=== PATIENT | female | born 1990 | race African-American/Black ===

== ENCOUNTER 2017-12-26 14:12 | Emergency (ER) | payer SELFPAY ==
[2017-12-26] MEDS ORDERED: ONDANSETRON 4 MG/2 ML VIAL ONE (14:44)
[2017-12-26] MEDS ORDERED: NA CHLORIDE 0.9% 1,000 ML ONE (14:44)
[2017-12-26] MEDS ORDERED: KETOROLAC 30 MG/ML INJ ONE (14:44)
[2017-12-26 15:19] LABS: ALT/SGPT 14 U/L (12-78); AST/SGOT 19 U/L (15-37); Albumin 3.9 g/dL (3.4-5.0); Alkaline Phosphatase 60 U/L (45-117); Amylase Level 33 U/L (25-115); BUN Blood Urea Nitrogen 8 mg/dL (7-18); Bicarbonate 25 mmol/L (21-32); Bilirubin Direct 0.2 mg/dL (0-0.2); Bilirubin Total 0.5 mg/dL (0.2-1.0); Glucose Level 82 mg/dL (74-106); Lipase 124 U/L (73-393); Potassium 3.3 mmol/L (3.5-5.1); Protein, Total 7.8 g/dL (6.4-8.2); Sodium Level 140 mmol/L (136-145)
[2017-12-26 15:28] LABS: Absolute Lymphocytes (CBC) 2.4 K/uL (0.7-4.9); Absolute Monocytes 0.6 K/uL (0.1-1.3); Absolute Neutrophil 3.5 K/uL (1.8-8.0); Basophils % 0.7 % (0-1.3); Eosinophils % 0.9 % (0-4.4); Hematocrit 32.8 % (36.0-45.0); Lymphocytes % 36.5 % (15.3-44.8); MCH 30.5 pg (27.0-35.0); MCV 91.7 fL (80-100); MPV 8.4 fL (7.6-11.3); RBC Red Blood Cell Count 3.58 M/uL (3.86-4.86)
[2017-12-26 16:17] LABS: Urine Blood NEGATIVE (NEG); Urine Glucose NEGATIVE (NEG); Urine Protein 1+ (NEG); Urine Specific Gravity >1.030 (1.005-1.030)
--- NOTE | 2017-12-26 18:00 | RAD REPORT ---
EXAM DESCRIPTION: CT - Abdomen Pelvis W Contrast - 12/26/2017 5:43 pm CLINICAL HISTORY: Right lower quadrant pain COMPARISON: None. TECHNIQUE: Biphasic, helical CT imaging of the abdomen and pelvis was performed following 100 ml non -ionic IV contrast. Oral contrast was given. All CT scans are performed using dose optimization technique as appropriate and may include automated exposure control or mA/KV adjustment according to patient size. FINDINGS: No suspicious findings in the lung bases. The liver, spleen, and pancreas show no suspicious findings. Periportal edema is seen. This is nonspe cific but can be seen with systemic illness as well as acute hepatic parenchymal disease. No gallblad frantz or biliary tree abnormality. Symmetric renal function is seen with no hydronephrosis or suspicious renal mass. No pyelonephritis o r acute renal parenchymal process. Partially filled urinary bladder shows no gross abnormality. Parr are accentuated by the contracted state. Retroflexed uterus is present. The patient has an IUD in pl liborio but is positioned very low in the uterus. No left ovarian finding. A 2.8 centimeter right ovarian cyst is evident. There is a small amount of free fluid in the mid right adnexa and right-side cul-de -sac. A ruptured or leaking cyst would be possible. No acute gastric finding. No dilated large or small bowel. The full extent of the appendix is not vis ualized. There is a portion of the appendix that is seen and contains oral contrast. He would be unus ual for appendicitis to exist in the setting of oral contrast within the lumen. No free air or pneumatosis. No focal inflammatory stranding. No hernia, mass or bulky lymphadenopa thy. The urinary bladder is without significant finding. No adrenal abnormality. No suspicious bony findings. IMPRESSION: A definitive abnormality to explain right lower quadrant pain is not seen. Patient has a 2.8 centimeter right ovarian cyst. Cyst rupture or leakage would be possible. PID is no t suspected. IUD is in place positioned low in the uterus. This may need further assessment in terms of IUD functi onality. Appendix is only partially visualized. The visualized portion does have contrast within the lumen. Th e would be unusual to have appendicitis in the setting of intraluminal contrast.
--- NOTE | 2017-12-26 18:02 | ER ---
Nurse's Notes [facility] Name: Tariq Zamora Age: 27 yrs Sex: Female : 1990 Arrival Date: 12/26/2017 Time: 14:14 Bed 17 Private MD: None, None Diagnosis: Unspecified ovarian cysts Presentation: 12/26 14:18 Presenting complaint: Patient states: RLQ pain x 3 days, severe cramping like labor jl7 contractions. Reports nausea, denies V/D, last BM was this morning and normal. Transition of care: patient was not received from another setting of care. Onset of symptoms was December 23, 2017. Risk Assessment: Do you want to hurt yourself or someone else? Patient reports no desire to harm self or others. Initial Sepsis Screen: Does the patient meet any 2 criteria? No. Patient's initial sepsis screen is negative. Does the patient have a suspected source of infection? No. Patient's initial sepsis screen is negative. Care prior to arrival: None. 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 - Social history:: Smoking status: Patient/guardian denies using tobacco. - Ebola Screening: : No symptoms or risks identified at this time. Screenin:04 Abuse screen: Denies threats or abuse. Denies injuries from another. Nutritional ch screening: No deficits noted. Tuberculosis screening: No symptoms or risk factors identified. Fall Risk None identified. Assessment: 15:04 General: Appears in no apparent distress. uncomfortable, Behavior is calm, cooperative, ch appropriate for age. Pain: Complains of pain in abdomen and right lower quadrant Pain currently is 8 out of 10 on a pain scale. Pain began gradually, 2-3 days ago. Neuro: No deficits noted. Respiratory: No deficits noted. GI: Bowel sounds present X 4 quads. Abd is soft X 4 quads Abdomen is tender to palpation in right lower quadrant Reports nausea. : No signs and/or symptoms were reported regarding the genitourinary system. Derm: Skin is pink, warm \T\ dry. 16:00 Reassessment: Patient appears in no apparent distress at this time. Patient and/or ch family updated on plan of care and expected duration. Pain level reassessed. Patient is alert, oriented x 3, equal unlabored respirations, skin warm/dry/pink. Patient states feeling better. Patient states symptoms have improved. 16:10 Reassessment: Patient appears in no apparent distress at this time. pt still trying to ch drink her contrast. pt gags on contrast, states she is going to vomit. pt medicated with zofran. 17:11 Reassessment: Patient appears in no apparent distress at this time. Patient and/or ch family updated on plan of care and expected duration. Pain level reassessed. Patient is alert, oriented x 3, equal unlabored respirations, skin warm/dry/pink. 17:45 Reassessment: pt in ct now. ch 18:48 Reassessment: Patient and/or family updated on plan of care and expected duration. Pain tl3 level reassessed. Patient is alert, oriented x 3, equal unlabored respirations, skin warm/dry/pink. Vital Signs: 14:21 BP 99 / 67; Pulse 67; Resp 18; Temp 97.9(O); Pulse Ox 100% on R/A; Pain 8/10; jl7 17:11 BP 90 / 54; Pulse 72; Resp 18; Temp 98.3; Pulse Ox 99% on R/A; Pain 0/10; ch 18:48 BP 101 / 68; Pulse 80; Resp 18; Pulse Ox 98% on R/A; tl3 ED Course: 14:14 Patient arrived in ED. sb2 14:16 None, None is Private Physician. sb2 14:21 Triage completed. jl7 14:21 Arm band placed on right wrist. jl7 14:24 Jemma Bautista RN is Primary Nurse. ch 14:25 Karin Child FNP-C is [facility]. kb 14:25 Peewee Fontanez MD is Attending Physician. kb 15:04 No apparent distress. Resting quietly. ch 15:04 Patient has correct armband on for positive identification. Placed in gown. Bed in low ch position. Call light in reach. Side rails up X 1. Adult w/ patient. Pulse ox on. NIBP on. 15:04 No provider procedures requiring assistance completed. Initial lab(s) drawn, by il, ch sent to lab. Urine collected: clean catch specimen. Inserted saline lock: 18 gauge in left antecubital area, using aseptic technique. Blood collected. 17:39 Patient moved to [place]. [place] 17:42 CT completed. Patient tolerated procedure well. Patient moved back from [place]. [place] 17:43 CT Abd/Pelvis - W/Contrast In Process Unspecified. EDMS 18:48 IV discontinued, intact, bleeding controlled, No redness/swelling at site. Pressure tl3 dressing applied. Administered Medications: 15:06 Drug: NS 0.9% 1000 ml Route: IV; Rate: 1000 ml; Site: left antecubital; 16:10 Follow up: IV Status: Completed infusion; IV Intake: 1000ml tl3 15:06 Drug: TORadol 30 mg Route: IVP; Site: left antecubital; 17:45 Follow up: Response: No adverse reaction; Marked relief of symptoms 18:49 Follow up: Response: No adverse reaction tl3 16:10 Drug: Zofran 4 mg Route: IVP; Site: left antecubital; 18:48 Follow up: Response: No adverse reaction tl3 Intake: 16:10 IV: 1000ml; Total: 1000ml. tl3 Outcome: 18:02 Discharge ordered by . kb 18:48 Discharged to home ambulatory. tl3 18:48 Condition: stable 18:48 Discharge instructions given to patient, Instructed on discharge instructions, follow up and referral plans. medication usage, Demonstrated understanding of instructions, follow-up care, medications, Prescriptions given X 2. 18:50 Patient left the ED. tl3 Signatures: Dispatcher [employer] EDMS Karin Child, HEARING AID REPAIRER-C HEARING AID REPAIRER-Jemma Fink, RN RN Selvin Angel Jahala RN RN jl7 Pam Buck2 Ava Correa, KENYON RN tl3
--- NOTE | 2017-12-26 18:02 | EDPHYS ---
Physician Documentation [facility] Name: Tariq Zamora Age: 27 yrs Sex: Female : 1990 Arrival Date: 12/26/2017 Time: 14:14 Bed 17 Private MD: None, None ED Physician Peewee Fontanez HPI: 12/26 14:36 This 27 yrs old Black Female presents to ER via Ambulatory with complaints of Abdominal kb Pain. 14:36 The patient presents with abdominal pain right lower quadrant. Onset: The kb symptoms/episode began/occurred 3 day(s) ago. The symptoms do not radiate. Associated signs and symptoms: Pertinent positives: nausea, Pertinent negatives: anorexia, blood in stools, chest pain, constipation, diarrhea, dysuria, fever, headache, hematuria, palpitations, shortness of breath, vaginal discharge, vomiting, vomiting blood. The symptoms are described as constant. Modifying factors: The symptoms are alleviated by nothing, the symptoms are aggravated by pressure. Severity of pain: At its worst the pain was moderate in the emergency department the pain is unchanged. The patient has not experienced similar symptoms in the past. The patient has not recently seen a physician. 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 - Social history:: Smoking status: Patient/guardian denies using tobacco. - Ebola Screening: : No symptoms or risks identified at this time. ROS: 14:34 Constitutional: Negative for fever, chills, and weight loss, Cardiovascular: Negative kb for chest pain, palpitations, and edema, Respiratory: Negative for shortness of breath, cough, wheezing, and pleuritic chest pain, Back: Negative for injury and pain, : Negative for injury, bleeding, discharge, and swelling, MS/Extremity: Negative for injury and deformity, Skin: Negative for injury, rash, and discoloration, Neuro: Negative for headache, weakness, numbness, tingling, and seizure. 14:34 Abdomen/GI: Positive for abdominal pain, nausea, Negative for vomiting, diarrhea, constipation, abdominal cramps, abdominal distension, anorexia. Exam: 14:34 Constitutional: This is a well developed, well nourished patient who is awake, alert, kb and in no acute distress. Head/Face: Normocephalic, atraumatic. Chest/axilla: Normal chest wall appearance and motion. Nontender with no deformity. No lesions are appreciated. Cardiovascular: Regular rate and rhythm with a normal S1 and S2. No gallops, murmurs, or rubs. Normal PMI, no JVD. No pulse deficits. Respiratory: Lungs have equal breath sounds bilaterally, clear to auscultation and percussion. No rales, rhonchi or wheezes noted. No increased work of breathing, no retractions or nasal flaring. Back: No spinal tenderness. No costovertebral tenderness. Full range of motion. Skin: Warm, dry with normal turgor. Normal color with no rashes, no lesions, and no evidence of cellulitis. MS/ Extremity: Pulses equal, no cyanosis. Neurovascular intact. Full, normal range of motion. Neuro: Awake and alert, GCS 15, oriented to person, place, time, and situation. Cranial nerves II-XII grossly intact. Motor strength 5/5 in all extremities. Sensory grossly intact. Cerebellar exam normal. Normal gait. 14:34 Abdomen/GI: Inspection: abdomen appears normal, Bowel sounds: normal, in all quadrants, Palpation: soft, in all quadrants, moderate abdominal tenderness, in the right lower quadrant. Vital Signs: 14:21 BP 99 / 67; Pulse 67; Resp 18; Temp 97.9(O); Pulse Ox 100% on R/A; Pain 8/10; jl7 17:11 BP 90 / 54; Pulse 72; Resp 18; Temp 98.3; Pulse Ox 99% on R/A; Pain 0/10; ch 18:48 BP 101 / 68; Pulse 80; Resp 18; Pulse Ox 98% on R/A; tl3 MDM: 14:25 Patient medically screened. kb 14:34 Data reviewed: vital signs, nurses notes. Data interpreted: Pulse oximetry: on room air kb is 100 %. Interpretation: normal. 18:01 Counseling: I had a detailed discussion with the patient and/or guardian regarding: the kb historical points, exam findings, and any diagnostic results supporting the discharge/admit diagnosis, lab results, radiology results, the need for outpatient follow up, an OB/Gyne specialist, to return to the emergency department if symptoms worsen or persist or if there are any questions or concerns that arise at home. 12/26 14:25 Order name: Amylase, Serum; Complete Time: 15:20 kb 12/26 14:25 Order name: Basic Metabolic Panel; Complete Time: 15:20 kb 12/26 14:25 Order name: CBC with Diff; Complete Time: 15:45 kb 12/26 14:25 Order name: Hepatic Function; Complete Time: 15:20 kb 12/26 14:25 Order name: Lipase; Complete Time: 15:20 kb 12/26 14:36 Order name: Urine Dipstick--Ancillary (enter results); Complete Time: 16:18 bd 12/26 14:25 Order name: Urine Test (obtain specimen); Complete Time: 15:07 kb 12/26 14:25 Order name: IV Saline Lock; Complete Time: 15:07 kb 12/26 14:25 Order name: Labs collected and sent; Complete Time: 15:07 kb 12/26 14:31 Order name: CT Abd/Pelvis - W/Contrast; Complete Time: 18:01 kb 12/26 14:36 Order name: Urine --Ancillary (enter results); Complete Time: 16:18 bd 12/26 14:25 Order name: Urine Dipstick-Ancillary (obtain specimen); Complete Time: 15:07 kb Administered Medications: 15:06 Drug: NS 0.9% 1000 ml Route: IV; Rate: 1000 ml; Site: left antecubital; ch 16:10 Follow up: IV Status: Completed infusion; IV Intake: 1000ml tl3 15:06 Drug: TORadol 30 mg Route: IVP; Site: left antecubital; ch 17:45 Follow up: Response: No adverse reaction; Marked relief of symptoms ch 18:49 Follow up: Response: No adverse reaction tl3 16:10 Drug: Zofran 4 mg Route: IVP; Site: left antecubital; ch 18:48 Follow up: Response: No adverse reaction tl3 Disposition: 12/27 11:38 Co-signature as Attending Physician, Peewee Fontanez MD I agree with the assessment and romy plan of care. Disposition: 12/26/17 18:02 Discharged to Home. Impression: Unspecified ovarian cysts. - Condition is Stable. - Discharge Instructions: Ovarian Cyst, [id number]. - Prescriptions for Zofran 4 mg Oral Tablet - take 1 tablet by ORAL route every 6 hours As needed; 20 tablet. Diclofenac Sodium 75 mg Oral Tablet Sustained Release - take 1 tablet by ORAL route 2 times per day; 30 tablet. - Medication Reconciliation Form, Thank You Letter, Antibiotic Education, Prescription Opioid Use form. - Follow up: Emergency Department; When: As needed; Reason: Worsening of condition. Follow up: Private Physician; When: 2 - 3 days; Reason: Recheck today's complaints, Continuance of care, Re-evaluation by your physician. Signatures: Dispatcher [employer] EDMS Karin Child, MARU-C FLOORING MACHINE OPERATOR-Jemma Fikn, RN RN Peewee Underwood MD MD cha Leal, Jahala RN RN jl7 Ava Correa RN RN tl3 Corrections: (The following items were deleted from the chart) 12/26 18:50 18:02 12/26/2017 18:02 Discharged to Home. Impression: Unspecified ovarian cysts. tl3 Condition is Stable. Forms are Medication Reconciliation Form, Thank You Letter, Antibiotic Education, Prescription Opioid Use. Follow up: Emergency Department; When: As needed; Reason: Worsening of condition. Follow up: Private Physician; When: 2 - 3 days; Reason: Recheck today's complaints, Continuance of care, Re-evaluation by your physician. kb
== END 2017-12-26 18:50 | disposition home or self-care (01) ==
LOC: ER 14:12
DX: N83.209 Unspecified ovarian cyst, unspecified side (principal)
CPT/HCPCS: 36415; 74177; 80048; 80076; 81003; 81025; 82150; 83690; 85025; 96361; 96374; 96375; 99284; J2405; J7030; Q9967